=== PATIENT | male | born 1965 | race Caucasian/White ===

== ENCOUNTER 2019-08-09 13:08 | Outpatient (CLI) | payer MEDICARE, MEDICAID, SELFPAY ==
--- NOTE | 2019-08-09 13:00 | US_ITS ---
WS: [id number] RENAL ULTRASOUND REASON FOR EXAM: Urinary retention TECHNIQUE: Grayscale and Doppler ultrasound examination of the kidneys. FINDINGS: Right kidney: Right kidney measures 11.4 cm x 4.9 cm x 4.7 cm. Previously described cyst in the right kidney now measures 1.94 x 1.42 x 1.94 cm. Left kidney: Left kidney measures 10.2 cm x 4.3 cm x 5.0 cm. No hydronephrosis, no masses, no stones. The urinary bladder was smooth in outline within normal limits good emptying. US/US renal BI* [id number] IMPRESSION: Small benign cyst of the right kidney The urinary bladder was normal.
== END 2019-08-09 13:09 | disposition home or self-care (01) ==
LOC: US 13:16
PROVIDERS: Family Provider Family Medicine; PCP Family Medicine; Visit Provider Urology
DX: R33.9 Retention of urine, unspecified (principal); Q61.01 Congenital single renal cyst
CPT/HCPCS: 76770

== ENCOUNTER 2020-08-13 14:20 | Outpatient (CLI) | payer MEDICARE, MEDICAID, SELFPAY ==
--- NOTE | 2020-08-13 14:15 | US_ITS ---
WS: [id number] ULTRASOUND RENAL TECHNIQUE: Ultrasound examination of both kidneys. CLINICAL INFORMATION: RENAL CYST COMPARISON: Ultrasound August 09 2019 FINDINGS: Echogenic kidneys bilaterally can be seen with medical renal disease. Mild renal cortical a trophy left greater than right. Superior pole simple right renal cyst measuring 2.7 x 2.3 x 1.7 cm has increased slightly compared to previous where it measured 1.9 x 1.4 x 1.9 cm RIGHT: Echogenicity: Increased Cortical thickness: 1.0 cm Hydronephrosis: None. Perinephric fluid: None. Right kidney measures: 9.0 cm x 3.8 cm x 5.1 cm. LEFT: Echogenicity: Increased Cortical thickness: 0.9 cm Hydronephrosis: None. Perinephric fluid: None. Left kidney measures: 10.3 cm x 4.2 cm x 5.0 cm. Normal visualized aorta. Normal bladder. US/US renal BI* [id number] IMPRESSION: 1. Echogenic kidneys bilaterally can be seen with chronic medical renal diseas e. 2. Bilateral cortical atrophy left greater than right. 3. Superior pole simple right renal cyst measuring 2.7 x 2.3 x 1.7 cm has inc reased slightly compared to previous where it measured 1.9 x 1.4 x 1.9 cm 4. Prostate measures 3.2 x 4.5 x 2.4 cm
== END 2020-08-13 14:21 | disposition home or self-care (01) ==
LOC: US 14:23
PROVIDERS: PCP Family Medicine; Visit Provider Urology
DX: N28.1 Cyst of kidney, acquired (principal); N28.9 Disorder of kidney and ureter, unspecified
CPT/HCPCS: 76770; 80048; 81003

== ENCOUNTER 2021-09-30 14:09 | Outpatient (CLI) | payer MEDICARE, MEDICAID, SELFPAY ==
--- NOTE | 2021-09-30 14:45 | US_ITS ---
WS: [id number] RENAL ULTRASOUND HISTORY: RENAL CYST COMPARISON: 08/13/2020 TECHNIQUE: 2-D and color Doppler imaging of the kidney submitted. Right kidney: 10.2 cm x 4.8 cm x 4.9 cm. Length of the kidney is near normal size. Diffuse cortical thinning and increased echogenicity. No hy dronephrosis or mass. There is a very small difficult to visualize cyst from the superior pole. Cyst measures 2.6 x 1.9 x 2.3 cm. Left kidney: 9.2 cm x 4.7 cm x 5.2 cm. Low normal kidney. Diffuse increased echogenicity. Mild cortical thinning but not as significant as t he RIGHT kidney. Simple cyst superior pole LEFT kidney measures 3.6 x 3.5 x 2.5 cm. Aorta: Very poorly visualized. Urinary Bladder: Moderately distended. No intraluminal filling defect. US/US renal BI* [id number] IMPRESSION: 1. Renal atrophy with diffuse cortical thinning and increased echogenicity fro m chronic medical renal disease. Similar to the prior examination. 2. Bilateral upper pole renal cysts as described above. Otherwise due to diffi culty imaging the patient and motion. No solid mass or hydronephrosis.
[2021-09-30 15:16] LABS: Anion Gap 11.6 (5-19); Blood Urea Nitrogen 29 mg/dL (6-20); Calcium 9.2 mg/dL (8.5-10.5); Carbon Dioxide 28 mmol/L (22-29); Chloride 105 mmol/L (98-107); Glomerular Filtration Rate 44.8 mL/min (90-130); Glucose 84 mg/dL (65-115); Osmolality Calculated 297 mOsm/kg (285-295); Potassium 3.6 mmol/L (3.5-5.1); Sodium 141 mmol/L (136-145)
== END 2021-09-30 14:10 | disposition home or self-care (01) ==
LOC: LAB 14:19
PROVIDERS: PCP Family Medicine; Visit Provider Urology
DX: N28.1 Cyst of kidney, acquired (principal); N26.1 Atrophy of kidney (terminal)
CPT/HCPCS: 76770; 80048

== ENCOUNTER → 2022-03-04 14:30 | Outpatient (BNVA) | payer MEDICARE, MEDICAID, SELFPAY | PROVIDERS: PCP Family Medicine; Visit Provider Nurse Practitioner Family | DX: N40.1 Benign prostatic hyperplasia with lower urinary tract symptoms (principal); R33.9 Retention of urine, unspecified | CPT/HCPCS: 99213 ==